=== PATIENT | female | born 1930 | race Caucasian/White ===

== ENCOUNTER 2017-09-06 14:25 | Observation (INO) ==
--- NOTE | 2017-09-06 15:13 | Emergency Department Note ---
Disposition Clinical Impression: Pneumonia Qualifiers: Pneumonia type: due to unspecified organism Laterality: left Lung location: lower lobe of lung Qualified Code(s): J18.1 - Lobar pneumonia, unspecified organism Conjunctivitis, left eye Qualifiers: Conjunctivitis type: acute Acute conjunctivitis type: unspecified Qualified Code(s): H10.32 - Unspecified acute conjunctivitis, left eye Dyspnea Qualifiers: Dyspnea type: unspecified Qualified Code(s): R06.00 - Dyspnea, unspecified Disposition: Admitted As Inpatient Condition: Good Referrals: Isai Soliz DO [Primary Care Provider] - Forms: ED Satisfaction Letter Time of Disposition: 17:34 SOB HPI - General Chief Complaint: ED Shortness of Breath/Dyspnea Stated Complaint: [facility], from [facility] Time Seen by Provider: 09/06/17 14:52 Source: patient Mode of arrival: ambulatory Limitations: no limitations Nursing Notes Reviewed: Yes Vital Signs Reviewed: Yes - History of Present Illness Patient is a 86 F with past medical history breast cancer, recent mastectomy by Dr. Geller in July, taking oral chemotherapy pill currently; HTN; GERD. She presents today due to dyspnea that has been present for the past three days. She has been having shortness of breath, dry cough, increased difficulty with breathing both at rest and with exertion, worsened shortness of breath when lying flat. Patient has been unable to lie flat at night for the past three nights due to increased dyspnea. Denies any hx of COPD, CHF. She admits to a "discomfort" that radiates from substernal region to upper chest - denies it feeling like burning/reflux/GERD. Denies any other nausea, vomiting, diarrhea , abdominal pain, hx of PE or blood clots, any leg swelling erythema or pain. - Related Data Home Medications Medication Instructions Recorded Confirmed Cyclobenzaprine [Flexeril] 5 mg PO HS PRN 06/17/16 07/19/17 Multivitamin [Multi-Day Vitamins] 1 each PO DAILY 06/17/16 07/19/17 Omeprazole [PriLOSEC] 20 mg PO DAILY 06/17/16 07/19/17 Levothyroxine [Synthroid] 100 mcg PO 0630 07/19/17 07/19/17 Anastrozole [Arimidex] 1 mg PO DAILY 09/06/17 09/06/17 Previous Rx's Medication Instructions Recorded Acetaminophen [Tylenol] 650 mg PO Q6HR PRN tablet 07/20/17 Ciprofloxacin OPTH Soln [Ciloxan 1 - 2 drop LEFT EYE Q2-4H #1 bottle 09/06/17 OPTH Soln] Allergies Allergy/AdvReac Type Severity Reaction Status Date / Time Sulfa (Sulfonamide Allergy See Verified 09/06/17 17:30 Antibiotics) Comments morphine AdvReac Nausea Verified 09/06/17 17:30 All systems ED: reviewed and negative except as stated. Constitutional: Denies: fever Cardiovascular: Denies: chest pain, palpitations Respiratory: Reports: cough, dyspnea. Denies: wheezes, hemoptysis, stridor, sputum production Gastrointestinal: Denies: abdominal pain, nausea, vomiting, diarrhea, constipation, hematemesis, melena, hematochezia Genitourinary: Denies: urgency, dysuria, frequency, hematuria Neurological: Denies: weakness, numbness, paresthesias Past Medical History - Past Medical History Attestation: Yes The following information was validated with the patient. Source: patient Medical history: Reports: cancer, diabetes, hypertension Surgical history: Reports: cholecystectomy Psychiatric history: Reports: no psych history - Social History Smoking Status: Never smoker Smokeless Tobacco Status: No Alcohol use: Reports: none Drug use: Reports: none Physical Exam - General Limitations: no limitations General appearance: alert, in no apparent distress, other (midly short of breath , no accessory muscle use) - Head Head exam: atraumatic, normocephalic, normal inspection - Eye Eye exam: Present: PERRL, EOMI, other (left eye conjunctivitis and yellow exudate) - ENT ENT exam: normal exam, normal oropharynx, mucous membranes moist - Neck Neck exam: Present: normal inspection, full ROM, trachea midline - Chest Chest inspection: Present: normal inspection, symmetric chest wall rise - Respiratory Respiratory exam: Present: other (Mild decrease in LUIS EDUARDO and LLL, otherwise clear throughout; mild increase in work of breathing). Absent: wheezes, stridor - Cardiovascular Cardiovascular exam: Present: regular rate, normal rhythm, normal heart sounds - Abdominal Exam Abdominal exam: Present: soft, Non-Tender. Absent: tenderness, distention, guarding, rebound, rigidity - Extremities Exam Extremities exam: Present: normal inspection, full ROM. Absent: tenderness, pedal edema - Neurological Exam Neurological exam: Present: alert, oriented X3 - Psychiatric Psychiatric exam: Present: normal affect, normal mood - Skin Skin exam: Present: warm, dry, intact, normal color Course Course Narrative: Mildly hypertensive, otherwise the rest of the vitals are WNL on room air. Physical exam shows left sided conjunctivitis with yellow exudate otherwise the rest fo the HEENT is WNL, heart RRR, lung exam: Mild decrease in LUIS EDUARDO and LLL, otherwise clear throughout; mild increase in work of breathing. ABdomen soft and nontender. Right mastectomy, well healing. Due to cancer hx, recent mastectomy surgery in July, there is concern for PE. Will obtain CTA of the chest; will also obtain EKG, trop, basic bloodwork. 17:29 CBC shows WBC of 7.5, HGb shows chronic anemia, BMP shows mild hyponatremia. Trop 0.00. UA negative. CTA chest: No PE. Consolidation nearly completely opacifying the left lower lobe, with an associated left pleural effusion. Findings are concerning for pneumonia. Patient will be started on vanc and zosyn for pneumonia, ciprofloxacin drops for left conjunctivitis. Chest CTA 09/06/17 15:17 IMPRESSION: 1. No evidence of a pulmonary embolism. 2. Consolidation nearly completely opacifying the left lower lobe, with an associated left pleural effusion. Findings are concerning for pneumonia. 3. Hiatal hernia. 4. Probable benign cyst noted in the left lobe of the liver. 5. 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 6. Colonic diverticulosis. 7. Right mastectomy. D/ / 09/06/2017 17:07:14 Madan Wilkerson MD / karli Interpreting Provider: Madan Wilkerson MD Vital Signs Temperature 98.1 F 09/06/17 14:30 Pulse Rate 89 09/06/17 14:30 Respiratory Rate 18 09/06/17 14:30 Blood Pressure 148/70 09/06/17 14:30 O2 Sat by Pulse Oximetry 97 09/06/17 14:30 Temperature 98.1 F 09/06/17 14:30 Pulse Rate 89 09/06/17 14:30 Respiratory Rate 18 09/06/17 14:30 Blood Pressure 148/70 09/06/17 14:30 O2 Sat by Pulse Oximetry 95 09/06/17 15:24 Oxygen Delivery Oxygen Delivery Room Air Shortness of Breath/Dyspnea - Medical Records Medical records reviewed: Yes I reviewed the patient's medical records. - Lab Data Lab results reviewed: Yes I reviewed the patient's lab results. Result diagrams: 09/06/17 15:26 09/06/17 15:26 Lab Results 09/06/17 09/06/17 09/06/17 Range/Units 15:26 15:26 15:26 WBC 7.5 (4.3-11.1) K/mcL RBC 3.40 L (3.82-4.97) M/mcL Hgb 10.8 L (11.5-15.4) g/dL Hct 32.1 L (35.3-44.9) % MCV 94.4 (83.0-100.0) fL MCH 31.8 (28.0-33.3) pg MCHC 33.6 (31.6-35.5) g/dL RDW 12.3 (11.5-14.5) % Plt Count 293 (140-400) K/mcL MPV 8.2 L (9.4-12.4) fL Immature Gran % 2.3 (0-4) % Seg Neutrophils % 73.3 % Lymphocytes % 15.6 % Monocytes % 6.6 % Eosinophils % 1.7 % Basophils % 0.5 % Neutrophils # 5.5 (1.6-8.9) K/mcL Lymphocytes # 1.2 (0.6-4.6) K/mcL Monocytes # 0.5 (0.0-1.3) K/mcL Eosinophils # 0.1 (0.0-0.6) K/mcL Basophils # 0.0 (0.0-0.2) K/mcL Sodium 127 L (136-145) mEq/L Potassium 3.7 (3.5-4.5) mEq/L Chloride 92 L (98-109) mEq/L Carbon Dioxide 27 (19-29) mEq/L BUN 7 (7-20) mg/dL Creatinine 0.71 (0.57-1.11) mg/dL Est GFR ( Amer) > 60 (> 60) Est GFR (Non-Af Amer) > 60 (> 60) BUN/Creatinine Ratio 10 (6-26) Glucose 179 H (70-99) mg/dL Calculated Osmolality 266 L (280-300) Calcium 9.4 (8.6-10.8) mg/dL Troponin I 0.00 (0-0.03) ng/mL B-Natriuretic Peptide (0-100) pg/mL Urine Color (Yellow) Urine Clarity (Clear) Urine pH (5.0-8.0) pH Units Ur Specific Wheatcroft (1.010-1.025) Urine Protein (Neg-Trace) mg/dL Urine Glucose (UA) (Normal) mg/dL Urine Ketones (Negative) mg/dL Urine Blood (Negative) Urine Nitrite (Negative) Urine Bilirubin (Negative) Urine Urobilinogen (Normal) mg/dL Ur Leukocyte Esterase (Negative) 09/06/17 09/06/17 Range/Units 15:26 17:01 WBC (4.3-11.1) K/mcL RBC (3.82-4.97) M/mcL Hgb (11.5-15.4) g/dL Hct (35.3-44.9) % MCV (83.0-100.0) fL MCH (28.0-33.3) pg MCHC (31.6-35.5) g/dL RDW (11.5-14.5) % Plt Count (140-400) K/mcL MPV (9.4-12.4) fL Immature Gran % (0-4) % Seg Neutrophils % % Lymphocytes % % Monocytes % % Eosinophils % % Basophils % % Neutrophils # (1.6-8.9) K/mcL Lymphocytes # (0.6-4.6) K/mcL Monocytes # (0.0-1.3) K/mcL Eosinophils # (0.0-0.6) K/mcL Basophils # (0.0-0.2) K/mcL Sodium (136-145) mEq/L Potassium (3.5-4.5) mEq/L Chloride (98-109) mEq/L Carbon Dioxide (19-29) mEq/L BUN (7-20) mg/dL Creatinine (0.57-1.11) mg/dL Est GFR ( Amer) (> 60) Est GFR (Non-Af Amer) (> 60) BUN/Creatinine Ratio (6-26) Glucose (70-99) mg/dL Calculated Osmolality (280-300) Calcium (8.6-10.8) mg/dL Troponin I (0-0.03) ng/mL B-Natriuretic Peptide 201 H (0-100) pg/mL Urine Color Yellow (Yellow) Urine Clarity Clear (Clear) Urine pH 7.0 (5.0-8.0) pH Units Ur Specific [place] 1.012 (1.010-1.025) Urine Protein Negative (Neg-Trace) mg/dL Urine Glucose (UA) Normal (Normal) mg/dL Urine Ketones Negative (Negative) mg/dL Urine Blood Small H (Negative) Urine Nitrite Negative (Negative) Urine Bilirubin Negative (Negative) Urine Urobilinogen Normal (Normal) mg/dL Ur Leukocyte Esterase Small H (Negative) - Radiology Data Radiology results reviewed: Yes I reviewed the patient's radiology results. Chest CTA 09/06/17 15:17 IMPRESSION: 1. No evidence of a pulmonary embolism. 2. Consolidation nearly completely opacifying the left lower lobe, with an associated left pleural effusion. Findings are concerning for pneumonia. 3. Hiatal hernia. 4. Probable benign cyst noted in the left lobe of the liver. 5. 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 6. Colonic diverticulosis. 7. Right mastectomy. D/ / 09/06/2017 17:07:14 Madan Wilkerson MD / karli Interpreting Provider: Madan Wilkerson MD - EKG Data EKG attestation: Yes I reviewed and interpreted this EKG. EKG results narrative: 09/06/2017 at 15:11. Normal sinus rhythm. Rate 84. WV 154. QRS 139. QTc 448. Left axis deviation. Widened QRS that is consistent with previous EKG. No other acute ST elevation or depression compared to EKG on Attestation Statement - Attestation Attestation: I, Atul Kunz DO, examined this patient [id number] and my medical decision-making was reviewed with Dr. Timothy Selby, Resident Physician. I agree with the documented findings, disposition and treatment plan as described except to the extent set forth below. Please see my progress notes for details. 86-year-old female presents to emergency room with several days worth of generalized malaise, intermittent fevers and chills, exertional dyspnea and shortness of breath. She has no specific history of cardiac disease or congestive heart failure according to her. Her vital signs on presentation otherwise unremarkable and stable. Patient does have a history of breast cancer that required mastectomy less than 1 month ago. She was in chemotherapy treatment by oral chemotherapy medications. Patient denies any other symptoms including trauma or injury. Patient presentation here is resting comfortably in the bed in no specific distress. Vital signs reviewed and are stable. Head is atraumatic pupils record and reactive to light. Lungs are clear heart is regular abdomen is soft nontender nondistended. Left septal lung field is diminished on evaluation. But does still aerate very. Right-sided anterior chest wall has appropriately healing surgical site over the right mastectomy. There is no visible signs of discharge drainage or swelling. Patient moves all 4 extremities without any difficulty pulses are intact. She does have pitting edema to the mid knee. Patient is concerning for new onset congestive heart failure, pneumonia, pulmonary emboli secondary to the recent surgical intervention and evaluation. Patient otherwise has no acute symptoms or issues noted at this time. Patient will be observed in emergency room until disposition is determined. See detailed documentation the physical exam, medical intervention, medical decision-making and disposition and the resident physician's note [id number] Patient brought a significant left lower lobe pneumonia. She has been in on the hospital as well as immunosuppression so she will be started on vancomycin and Zosyn. No clinical signs of sepsis at this point. No aggressive fluid resuscitation on the computer this time. Patient will be admitted for definitive management
[2017-09-06 15:39] LABS: Basophils % 0.5 %; Eosinophils # 0.1 K/mcL (0.0-0.6); Eosinophils % 1.7 %; Hematocrit 32.1 % (35.3-44.9); Hemoglobin 10.8 g/dL (11.5-15.4); Immature Granulocytes % 2.3 % (0-4); Lymphocytes # 1.2 K/mcL (0.6-4.6); Lymphocytes % 15.6 %; Mean Corpuscular HGB Conc 33.6 g/dL (31.6-35.5); Mean Corpuscular Hemoglobin 31.8 pg (28.0-33.3); Mean Corpuscular Volume 94.4 fL (83.0-100.0); Mean Platelet Volume 8.2 fL (9.4-12.4); Monocytes # 0.5 K/mcL (0.0-1.3); Monocytes % 6.6 %; Neutrophils # 5.5 K/mcL (1.6-8.9); Platelet Count 293 K/mcL (140-400); Red Cell Distribution Width 12.3 % (11.5-14.5); Segmented Neutrophils % 73.3 %
[2017-09-06 15:52] LABS: BUN/Creatinine Ratio 10 (6-26); Blood Urea Nitrogen 7 mg/dL (7-20); Calcium 9.4 mg/dL (8.6-10.8); Carbon Dioxide 27 mEq/L (19-29); Chloride 92 mEq/L (98-109); Glucose 179 mg/dL (70-99); Osmolality,Calculated 266 (280-300); Potassium 3.7 mEq/L (3.5-4.5); Sodium 127 mEq/L (136-145); eGFR For African Americans > 60 (> 60); eGFR For Non-African Americans > 60 (> 60)
[2017-09-06 17:11] LABS: Bilirubin,Urine Negative (Negative); Blood,Urine Small (Negative); Clarity,Urine Clear (Clear); Color,Urine Yellow (Yellow); Glucose,Urine (UA) Normal (Normal); Ketones,Urine Negative (Negative); Leukocyte Esterase,Urine Small (Negative); Nitrite,Urine Negative (Negative); Protein,Urine Negative (Neg-Trace); Specific Gravity,Urine 1.012 (1.010-1.025); Urobilinogen,Urine Normal (Normal)
[2017-09-06 17:28] LABS: RBC,Urine 0-3 per hpf (0-3); Renal Epithelial Cells,Urine Few per hpf (None-Few); Squamous Epithelial Cell,Urine Few per lpf (None-Few)
[2017-09-06 17:29] LABS: Bacteria,Urine Few per hpf (None-Few); Hyaline Casts,Urine None Seen per lpf (None-Few)
[2017-09-06] MEDS ORDERED: Vancomycin 1,000 MG in D5% in Water 250 ML IVPB SCH (18:00)
[2017-09-06] MEDS ORDERED: Levofloxacin 500 MG/100 ML 500 MG/100 ML BAG IVPB ONE (19:56)
--- NOTE | 2017-09-06 20:29 | Internal Med History&Physical ---
Date of Encounter: 09/07/17 Time of Encounter: 20:27 Assessment and Plan (1) HCAP (healthcare-associated pneumonia) Current visit: Yes Status: Acute CTA showed no evidence of PE but found consolidation in left lower lobe with associated pleural effusion WBC normal Vitals signs stable, does not meet sepsis criteria In the setting of immunosuppression with Anastrozole and her recent mastectomy involving an overnight stay back in July here at [facility], we will treat her as a healthcare-associated pneumonia Kidney function normal. Cr 0.71 IV ABx - Levaquin, Zosyn, Vancomycin Mucinex Sputum culture Supportive care (2) Pleural effusion Current visit: Yes Status: Acute See above for possible HCAP management though patient has minimal nonproductive cough, no WBC or fever With the history of metastatic invasive lobular carcinoma of breast, we are concerned about possible mets to the lung resulting in pleural effusion Consult placed to oncology for further investigation and possible PET scan (3) Dyspnea Current visit: Yes Status: Acute see above Qualifiers: Dyspnea type: unspecified Qualified Code(s): R06.00 - Dyspnea, unspecified (4) UTI (urinary tract infection) Current visit: Yes Status: Acute UA shows small blood, small leuk esterase + and 5-15 WBCs. Covered for now with HCAP regimen Pending culture Qualifiers: Urinary tract infection type: site unspecified Hematuria presence: with hematuria Qualified Code(s): N39.0 - Urinary tract infection, site not specified; R31.9 - Hematuria, unspecified; R31.9 - Hematuria, unspecified (5) Anxiety Current visit: Yes Status: Acute Worse in the evening with increased cough and anxiety about not sleeping. Will start slow with melatonin and adjust accordingly. (6) Breast cancer Current visit: Yes Status: Chronic S/p right masectomy in July Taking Anastrozole once per day starting on Aug 09 for five year Will follow as outpatient with the cancer center here in [place] Continue therapy while she is here Qualifiers: Breast location: unspecified site of breast Estrogen receptor status: positive Patient sex: female Laterality: right Qualified Code(s): C50.911 - Malignant neoplasm of unspecified site of right female breast; Z17.0 - Estrogen receptor positive status [ER+]; Z17.0 - Estrogen receptor positive status [ER+] (7) Hyponatremia Current visit: No Status: Acute Na 127, Serum Osmolality 266 Euvolemic on exam Ordered TSH, Free T4, Urine Na and Urine Osmolality to investigate causes of her hyponatremia Will continue to follow (8) Hypothyroidism Current visit: Yes Status: Chronic Restarting synthroid in the am. Rechecking TSH and Free T4 and will adjust accordingly. Qualifiers: Hypothyroidism type: unspecified Qualified Code(s): E03.9 - Hypothyroidism , unspecified (9) GERD (gastroesophageal reflux disease) Current visit: Yes Status: Chronic Continue home Prilosec Qualifiers: Esophagitis presence: esophagitis presence not specified Qualified Code(s) : K21.9 - Gastro-esophageal reflux disease without esophagitis (10) Conjunctivitis, left eye Current visit: Yes Status: Acute Continued Cipro drops to left eye Qualifiers: Conjunctivitis type: acute Acute conjunctivitis type: unspecified Qualified Code(s): H10.32 - Unspecified acute conjunctivitis, left eye (11) Muscle spasm Current visit: No Status: Chronic 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 Reports more recent spasm with coughing and takes flexiril PRN. Will continue during her stay. Internal Medicine - H&P: HPI Chief complaint: shortness of breath Admitted From: Home Plans for Post Hospital Care: Home History of present illness: Ms. Dallas is a very pleasant 86 year old female with a past medical history hypothyroidism, lumbago (sciatia on left), GERD and breast cancer who presents to the [facility] Emergency Department with a chief complaint of shortness of breath. She reports the dyspnea started Monday afternoon into the evening which worsens while laying flat. There is associated productive cough and fatigue. She did not take any medications at home for this complaint and has no history of this previously. The dyspnea again worsened while lying down Monday night to the point she was believing "this is it" and I'm going to . Denies any hempotysis, chest pain, palpitations, recent travel, sick contacts, REAGAN, LE edema or weight loss. Patient was seen at the [facility] urgent care today and was found to have conjunctivitis of the left eye and significant difficult breathing requiring her to come the ED. On arrival, EKG shows old LBBB that is in sinus rhythm. No new changes noted when compared to previous. Initial workup shws WBC 7.5, vital signs stable, Na 127, kidney function normal and BNP elevated at 201. UA shows small blood, small leuk esterase + and 5-15 WBCs. Culture sent. CTA was done and showed no evidence of PE but found consolidation in left lower lobe with associated pleural effusion. She was started on vancomycin, zosyn and levaquin. On evaluation, she states that she underwent a left masectomy roughly 5 weeks ago here at [facility] and started taking once per day anastrozole for chemotherapy on August 09 for five years. She is to follow up with cancer patient as an outpatient for continued management. She denies any tobacco or EtOH abuse. Patient lives at home with her . We will admit patient to for further workup and management. Past Med Surg Social Fam HX - Past Medical History Medical history: cancer, diabetes, hypertension Psychiatric history: no psych history - Past Surgical History Surgical History: cholecystectomy - Social History Smoking Status: Never smoker Smokeless Tobacco Status: No Alcohol use: none Drug use: none - Family History Mother Living Status: Hx Family Endocrine Disorder: Yes (Thyroid) Internal Medicine - H&P: Meds Cyclobenzaprine [Flexeril] 5 mg PO HS PRN 06/17/16 [History] Multivitamin [Multi-Day Vitamins] 1 each PO DAILY 06/17/16 [History] Omeprazole [PriLOSEC] 20 mg PO DAILY 06/17/16 [History] Levothyroxine [Synthroid] 100 mcg PO 0630 07/19/17 [History] Acetaminophen [Tylenol] 650 mg PO Q6HR PRN tablet 07/20/17 [Rx] Anastrozole [Arimidex] 1 mg PO DAILY 09/06/17 [History] Ciprofloxacin OPTH Soln [Ciloxan OPTH Soln] 1 - 2 drop LEFT EYE Q2-4H #1 bottle 09/06/17 [Rx] 3 Allergy/AdvReac Type Severity Reaction Status Date / Time Sulfa (Sulfonamide Allergy See Verified 09/06/17 17:30 Antibiotics) Comments morphine AdvReac Nausea Verified 09/06/17 17:30 All Systems PM: A 10-system review of systems was performed and is negative for pertinent findings except as documented above in the HPI. - Constitutional Constitutional: fatigue, weakness - EENT Eyes: discharge, itchy eyes - Breasts Breasts: as per HPI - Cardiovascular Cardiovascular ROS IM: dyspnea, dyspnea on exertion, no chest pain, no diaphoresis, no palpitations - Respiratory Respiratory: cough, dyspnea, pain with cough, no hemoptysis - Gastrointestinal Gastrointestinal: no abdominal pain, no constipation, no diarrhea - Genitourinary Genitourinary: dysuria - Musculoskeletal Musculoskeletal ROS IM: back pain - Integumentary Integumentary IM: no rash - Neurological Neurological ROS: weakness, no headache(s) - Psychiatric Psychiatric: anxiety - Constitutional Vitals: Temp Pulse Resp BP Pulse Ox 98.1 F 82 18 149/80 97 09/06/17 14:30 09/06/17 18:26 09/06/17 18:26 09/06/17 18:26 09/06/17 18:26 General appearance: Present: cooperative, A&O X 3, no acute distress (Sitting at bedside, ambulating to bathroom) - Head Head exam: Present: atraumatic, normocephalic - Eye Eye exam: Present: conjunctival injection (left eye) - Expanded Eye Exam sclera: left: exudate - Neck Neck exam general surgery: Present: normal inspection, supple, trachea midline - Respiratory Respiratory exam: Present: decreased breath sounds (left lower), rhonchi (left) . Absent: accessory muscle use, chest wall tenderness, respiratory distress - Cardiovascular Cardiovascular exam: Present: RRR, +S1, +S2 - GI/Abdominal GI/Abdominal exam: Present: normal bowel sounds, soft. Absent: tenderness - Rectal Rectal exam: Present: deferred - Extremities Exam Extremities exam: Present: warm. Absent: calf tenderness, pedal edema, tenderness - Neurological Exam Neurological exam: Present: alert, oriented X3, no focal deficits. Absent: speech deficit - Psychiatric Psychiatric exam: Present: anxious - Skin Skin exam: Present: dry, warm. Absent: cyanosis Internal Med - H&P Results - Labs CBC & Chem 7: 09/06/17 15:26 09/06/17 15:26
[2017-09-06] MEDS: Ciprofloxacin OPTH Soln 2.5 ML BOTTLE LEFT EYE SCH ×2 (21:16→23:47)
[2017-09-06] MEDS ORDERED: Naloxone 0.4 MG/ML INJ IVP PRN (21:18)
[2017-09-06] MEDS ORDERED: Acetaminophen 325 MG TABLET PO PRN (21:18)
[2017-09-06] MEDS: Vancomycin 1,000 MG in D5% in Water 250 ML IVPB SCH (22:03)
[2017-09-06] MEDS: Levofloxacin 750 MG/150 ML 750 MG/150 ML BAG IVPB SCH (23:09)
--- NOTE | 2017-09-06 23:20 | Event Note ---
Date of Encounter: 09/06/17 Time of Encounter: 23:19 Patient seen and examined with medical aides teacher. Agree with this assessment and plan.
[2017-09-06] MEDS: Piperacillin/Tazobactam 3.375 GM/200 ML BAG IVPB SCH (23:51)
[2017-09-07 04:51] LABS: Basophils # 0.1 K/mcL (0.0-0.2); Basophils % 0.5 %; Eosinophils # 0.1 K/mcL (0.0-0.6); Eosinophils % 1.3 %; Hematocrit 30.9 % (35.3-44.9); Hemoglobin 10.6 g/dL (11.5-15.4); Immature Granulocytes % 1.8 % (0-4); Lymphocytes # 1.3 K/mcL (0.6-4.6); Lymphocytes % 13.5 %; Mean Corpuscular HGB Conc 34.3 g/dL (31.6-35.5); Mean Corpuscular Hemoglobin 31.9 pg (28.0-33.3); Mean Corpuscular Volume 93.1 fL (83.0-100.0); Mean Platelet Volume 8.3 fL (9.4-12.4); Monocytes # 0.6 K/mcL (0.0-1.3); Monocytes % 6.7 %; Neutrophils # 7.3 K/mcL (1.6-8.9); Platelet Count 283 K/mcL (140-400); Red Blood Count 3.32 M/mcL (3.82-4.97); Red Cell Distribution Width 12.2 % (11.5-14.5); Segmented Neutrophils % 76.2 %
[2017-09-07] MEDS: Ciprofloxacin OPTH Soln 2.5 ML BOTTLE LEFT EYE SCH ×6 (05:01→22:55)
[2017-09-07] MEDS: Vancomycin 1,000 MG in D5% in Water 250 ML IVPB SCH (05:01)
[2017-09-07 05:07] LABS: BUN/Creatinine Ratio 12 (6-26); Blood Urea Nitrogen 8 mg/dL (7-20); Calcium 8.6 mg/dL (8.6-10.8); Carbon Dioxide 23 mEq/L (19-29); Chloride 96 mEq/L (98-109); Glucose 113 mg/dL (70-99); Magnesium 1.7 mg/dL (1.6-2.6); Osmolality,Calculated 267 (280-300); Sodium 129 mEq/L (136-145); eGFR For African Americans > 60 (> 60); eGFR For Non-African Americans > 60 (> 60)
[2017-09-07 05:14] LABS: Potassium 4.5 mEq/L (3.5-4.5)
[2017-09-07] MEDS: Piperacillin/Tazobactam 3.375 GM/200 ML BAG IVPB SCH ×3 (06:45→22:54)
--- NOTE | 2017-09-07 07:21 | Electrocardiograph Report ---
[facility] [employer] Test Date: 2017-09-06 Pat Name: Carolynn Dallas Department: [id number] Room: 2A31 Gender: F [employer]: EKP : 1930 Requested By: Fernando Prather Order Number: [id number] Reading MD: Isai Soliz DO Measurements Intervals [place] Rate: 84 P: 22 VA: 154 QRS: -32 QRSD: 139 T: 113 QT: 406 QTc: 448 Interpretive Statements SINUS RHYTHM MARKED LEFT AXIS DEVIATION LEFT BUNDLE BRANCH BLOCK Electronically Signed On 09-07-2017 7:20:12 EST by Isai Soliz DO
[2017-09-07] MEDS ORDERED: Piperacillin/Tazobactam 4.5 GM in Water for inj. (sterile) 20 ML IVP SCH (09:00)
[2017-09-07] MEDS: Anastrozole 1 MG TABLET PO SCH (09:52)
--- NOTE | 2017-09-07 10:57 | Internal Med Progress Note ---
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 Continue to monitor (3) Conjunctivitis, left eye Current Visit: Yes Status: Acute Assessment and plan: Continue cipro drops She has no red eye Qualifiers: Conjunctivitis type: acute Acute conjunctivitis type: unspecified Qualified Code(s): H10.32 - Unspecified acute conjunctivitis, left eye (4) Anxiety Current Visit: Yes Status: Chronic Assessment and plan: Chronic, stable, continue home meds (5) Breast cancer Current Visit: Yes Status: Chronic Assessment and plan: Chronic, stable, metastatic follow up with oncology out-patient Continue anastrozole Qualifiers: Breast location: unspecified site of breast Estrogen receptor status: positive Patient sex: female Laterality: right Qualified Code(s): C50.911 - Malignant neoplasm of unspecified site of right female breast; Z17.0 - Estrogen receptor positive status [ER+]; Z17.0 - Estrogen receptor positive status [ER+] (6) Hypothyroidism Current Visit: Yes Status: Chronic Assessment and plan: Continue Synthroid Qualifiers: Hypothyroidism type: unspecified Qualified Code(s): E03.9 - Hypothyroidism , unspecified (7) GERD (gastroesophageal reflux disease) Current Visit: Yes Status: Chronic Assessment and plan: Continue home meds Qualifiers: Esophagitis presence: esophagitis presence not specified Qualified Code(s) : K21.9 - Gastro-esophageal reflux disease without esophagitis (8) UTI (urinary tract infection) Current Visit: Yes Status: Acute Assessment and plan: Suspected Continue current antibiotics Qualifiers: Urinary tract infection type: site unspecified Hematuria presence: with hematuria Qualified Code(s): N39.0 - Urinary tract infection, site not specified; R31.9 - Hematuria, unspecified; R31.9 - Hematuria, unspecified (9) Pleural effusion Current Visit: Yes Status: Acute Assessment and plan: Parapneumonic patient is clinically stable No O2 requirements - Subjective Interval history: Seen and evaluated with daughter at bedside No new complains She actually feels she is getting some improvement She is admitted and being managed for L Lung pneumonia and Pleural effusion, suspected UTI - Constitutional Vitals: Temp Pulse Resp BP Pulse Ox 97.5 F L 78 17 138/75 96 09/07/17 10:48 09/07/17 10:48 09/07/17 10:48 09/07/17 10:48 09/07/17 10:48 General appearance: Present: cooperative, A&O X 3, pleasant, no acute distress - Head Head exam: Present: atraumatic, normocephalic - Eye Eye exam: Present: PERRL, conjuntiva pink, sclera anicteric Pupils: Present: PERRL - Neck Neck exam general surgery: Present: supple, trachea midline. Absent: lymphadenopathy - Respiratory Additional comments: Diminished air entry on the LLL zone. No crackles or rhonchi - Cardiovascular Cardiovascular exam: Present: RRR, +S1, +S2. Absent: diastolic murmur, gallop, rubs, systolic murmur - GI/Abdominal GI/Abdominal exam: Present: normal bowel sounds, soft, no peritoneal signs. Absent: distended, tenderness - Extremities Exam Extremities exam: Present: warm, radial pulses palpable and symmetrical. Absent : calf tenderness, cyanotic, pedal edema - Neurological Exam Neurological exam: Present: alert, CN II-XII intact, oriented X3, no focal deficits. Absent: pronater drift, facial droop, speech deficit - Skin Skin exam: Present: dry, intact Internal Medicine: Result - Labs CBC & Chem 7: 09/07/17 04:41 09/07/17 04:41 Labs: Short CBC 09/07/17 Range/Units 04:41 WBC 9.6 (4.3-11.1) K/mcL Hgb 10.6 L (11.5-15.4) g/dL Hct 30.9 L (35.3-44.9) % Plt Count 283 (140-400) K/mcL Neutrophils # 7.3 (1.6-8.9) K/mcL BMP 09/07/17 04:41 Sodium 129 L Potassium 4.5 Chloride 96 L Carbon Dioxide 23 BUN 8 Creatinine 0.65 Glucose 113 H Calcium 8.6 Consult Discharge Plan - Plan Referrals: Isai Soliz DO [Primary Care Provider] - 09/12/17 10:00 am ()
[2017-09-07] MEDS ORDERED: Hydrocortisone Rectal 2.5% CRM 28 GM TUBE RC PRN (11:05)
[2017-09-07] MEDS ORDERED: Aminoglycoside Consult 1 EACH MC ONE (13:49)
[2017-09-07] MEDS ORDERED: Piperacillin/Tazobactam 3.375 GM in Water for inj. (sterile) 20 ML IVP ONE (17:21)
[2017-09-07] MEDS: Levofloxacin 750 MG/150 ML 750 MG/150 ML BAG IVPB SCH (20:47)
[2017-09-08] MEDS: Ciprofloxacin OPTH Soln 2.5 ML BOTTLE LEFT EYE SCH ×5 (04:49→21:24)
[2017-09-08] MEDS: *HR* Enoxaparin 40 MG/0.4 ML SYRINGE SQ SCH (04:50)
[2017-09-08] MEDS: Piperacillin/Tazobactam 3.375 GM/200 ML BAG IVPB SCH ×3 (04:50→23:11)
[2017-09-08] MEDS ORDERED: Vancomycin 1,250 MG in D5% in Water 250 ML IVPB SCH (05:00)
[2017-09-08 08:21] LABS: Basophils % 0.4 %; Eosinophils # 0.1 K/mcL (0.0-0.6); Eosinophils % 1.1 %; Hematocrit 33.2 % (35.3-44.9); Hemoglobin 11.6 g/dL (11.5-15.4); Immature Granulocytes % 2.5 % (0-4); Immature Platelets 0.9 % (1.1-6.1); Lymphocytes # 1.4 K/mcL (0.6-4.6); Lymphocytes % 15.3 %; Mean Corpuscular HGB Conc 34.9 g/dL (31.6-35.5); Mean Corpuscular Volume 91.7 fL (83.0-100.0); Monocytes # 0.6 K/mcL (0.0-1.3); Monocytes % 6.2 %; Neutrophils # 6.8 K/mcL (1.6-8.9); Platelet Count 424 K/mcL (140-400); Red Blood Count 3.62 M/mcL (3.82-4.97); Red Cell Distribution Width 12.1 % (11.5-14.5); Segmented Neutrophils % 74.5 %
[2017-09-08 08:34] LABS: BUN/Creatinine Ratio 12 (6-26); Blood Urea Nitrogen 8 mg/dL (7-20); Calcium 8.7 mg/dL (8.6-10.8); Carbon Dioxide 24 mEq/L (19-29); Chloride 97 mEq/L (98-109); Glucose 107 mg/dL (70-99); Magnesium 1.8 mg/dL (1.6-2.6); Osmolality,Calculated 267 (280-300); Sodium 129 mEq/L (136-145); eGFR For African Americans > 60 (> 60); eGFR For Non-African Americans > 60 (> 60)
[2017-09-08 08:36] LABS: Potassium 5.1 mEq/L (3.5-4.5)
--- NOTE | 2017-09-08 08:41 | Oncology Inp Consult Note ---
Date of Encounter: 09/08/17 Time of Encounter: 17:00 Assessment and Plan (1) Breast cancer Status: Chronic Assessment and plan: Right breast invasive lobular carcinoma, 5 cm tumor,pT2,N1, stage IIB, Er 100%, DE 10%, HER2 neg, grade 2, status post right mastectomy July 2017, surgical wound looks well she currently does not have any problems associated with her breast cancer. She continues to be on anastrozole. She had 2 out of 2 lymph nodes positive with extranodal tumor extension identified. Patient did not want to pursue with oncology (or radiation) and prefers to take antiestrogen with Dr. Geller. She however wanted information for breast cancer support group that is available through [facility], also prescriptions for breast prosthesis/supplies which can be provided to her at a later date. Left lower lobe solid irritation, clinically consistent with pneumonia on broad- spectrum antibiotics clinically feeling improved. Rt paratracheal lymphadenopathy-could be reactive, cystic lesion noted in the liver up to 5 cm in size and thickening left adrenal gland noted. Plan is to continue AI nad follow up with us in clinic after discharge, she will discuss onc follwo up further with her surgeon. Discussed plan of care with patient and daughter bed side. Qualifiers: Breast location: unspecified site of breast Estrogen receptor status: positive Patient sex: female Laterality: right Qualified Code(s): C50.911 - Malignant neoplasm of unspecified site of right female breast; Z17.0 - Estrogen receptor positive status [ER+]; Z17.0 - Estrogen receptor positive status [ER+] - Data of Consult Requesting Physician: Iggy Nunez MD Primary Care Provider: Carissa Ramsey - Consult Narrative Reason for consult: breast cancer, pneumonia History of present illness: Ms. Dallas is a 86 year old female with medical history significant for anxiety, hypothyroidism, gastroesophageal reflux disease, diabetes, hypertension, breast cancer status post right mastectomy on anastrozole, hospitalized due to shortness of breath associated with productive cough for the last few days. Patient reports that she had right mastectomy in July [address] Alberto on follow-up visit, 2 days later she started developing coughing with productive phlegm. She had undergone a CT angiogram for shortness of breath that showed no pulmonary embolism but consolidation and completely opacifying left lower lobe concerning for pneumonia. She started on by broad-spectrum antibiotics Levaquin and Zosyn and vancomycin. Urinalysis showed possible infection, culture report showing Escherichia coli. Oncology consulted due to patient's history of recent diagnosis of breast cancer. She had a diagnostic mammogram in June 2017 that showed in the right breast 0.4 x 0.6 spiculated hypoechoic lesion, patient underwent ultrasound- guided biopsy of this lesion. She also had an additional lesion at the immediate subareolar region of the breast. She underwent July 2017 right mastectomy with sentinel lymph node biopsies, single focus of invasive carcinoma tumor size measuring 5 cm with histologic grade 2 final margin status was negative lymphovascular invasion was identified 2 sentinel lymph nodes were positive, extranodal tumor extension was identified pathologic staging was pT2 [id number], stage IIB estrogen receptor was 100% strongly positive HER-2/chet was negative progesterone was 10% strongly positive. Patient continues to have a cough or shortness of breath is improving. She denies some soreness in the mastectomy site but denies any pain. Past Med Surg Social Fam HX - Past Medical History Medical history: cancer, diabetes, hypertension Psychiatric history: no psych history - Past Surgical History Surgical History: cholecystectomy - Social History Smoking Status: Never smoker Smokeless Tobacco Status: No Alcohol use: none Drug use: none - Family History Mother Living Status: Hx Family Endocrine Disorder: Yes (Thyroid) Medications and Allergies Cyclobenzaprine [Flexeril] 5 mg PO HS PRN 06/17/16 [History] Multivitamin [Multi-Day Vitamins] 1 each PO DAILY 06/17/16 [History] Omeprazole [PriLOSEC] 20 mg PO DAILY 06/17/16 [History] Levothyroxine [Synthroid] 100 mcg PO 0630 07/19/17 [History] Acetaminophen [Tylenol] 650 mg PO Q6HR PRN tablet 07/20/17 [Rx] Anastrozole [Arimidex] 1 mg PO DAILY 09/06/17 [History] Ciprofloxacin OPTH Soln [Ciloxan OPTH Soln] 1 - 2 drop LEFT EYE Q2-4H #1 bottle 09/06/17 [Rx] 3 Allergy/AdvReac Type Severity Reaction Status Date / Time Sulfa (Sulfonamide Allergy See Verified 09/06/17 17:30 Antibiotics) Comments morphine AdvReac Nausea Verified 09/06/17 17:30 Review of systems: as in hpi Oncology - Exam - Constitutional Vitals: Temp Pulse Resp BP Pulse Ox 97.7 F 79 17 146/75 96 09/08/17 04:08 09/08/17 07:03 09/08/17 07:03 09/08/17 07:03 09/08/17 07:03 General appearance: average body habitus - Head Head exam: Present: atraumatic, normal inspection - Eye Eye exam: Present: sclera anicteric - ENT ENT exam: Present: mucous membranes moist - Respiratory Respiratory exam: Present: CTAB, rhonchi - Cardiovascular Cardiovascular exam: Present: +S1, +S2 - GI/Abdominal GI/Abdominal exam: Present: normal bowel sounds, soft - Extremities Exam Extremities exam: Present: normal inspection - Neurological Exam Neurological exam: Present: alert, CN II-XII intact, oriented X3 - Additional findings Additional findings: Breast-rt s/p mastectomy without induration or skin changes Oncology - Results Labs: Short CBC 09/08/17 Range/Units 08:12 WBC 9.1 (4.3-11.1) K/mcL Hgb 11.6 (11.5-15.4) g/dL Hct 33.2 L (35.3-44.9) % Plt Count 424 H (140-400) K/mcL Neutrophils # 6.8 (1.6-8.9) K/mcL Consult Discharge Plan - Plan Referrals: Isai Soliz DO [Primary Care Provider] - 09/12/17 10:00 am ()
[2017-09-08] MEDS: Anastrozole 1 MG TABLET PO SCH (08:45)
[2017-09-08] MEDS ORDERED: Melatonin 3 MG TABLET PO PRN (08:50)
--- NOTE | 2017-09-08 08:54 | Internal Med Progress Note ---
<Luis Limon - Last Filed: 09/08/17 08:52> Date of Encounter: 09/08/17 Time of Encounter: 08:52 - Assessment and plan (1) HCAP (healthcare-associated pneumonia) Current Visit: Yes Status: Acute Assessment and plan: Patient has evidence of a left lower lobe pneumonia on CT. Given the patient's recent surgery and stated study care facility for treatment for healthcare associated pneumonia with vancomycin, Zosyn, Levaquin. Patient seems to be improving clinically. We will de-escalate once negative blood cultures have been returned. Today is day 3 of antibiotic therapy. (2) Pleural effusion Current Visit: Yes Status: Acute Assessment and plan: Likely parapneumonic given the patient's pneumonia as discussed above. Currently stable not requiring oxygen. No indication for thoracentesis. Continue to treat pneumonia with antibiotics as discussed above. (3) UTI (urinary tract infection) Current Visit: Yes Status: Acute Assessment and plan: Secondary to Escherichia coli. Which is sensitive to all listed antibiotics other than ampicillin. Patient is currently being covered with broad-spectrum antibiotics for her pneumonia as discussed above. Today is day 3 of treatment. Qualifiers: Urinary tract infection type: acute cystitis Hematuria presence: with hematuria Qualified Code(s): N30.01 - Acute cystitis with hematuria (4) Hyponatremia Current Visit: Yes Status: Acute Assessment and plan: Acute on chronic. Stable. Asymptomatic. 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 Continue to encourage good by mouth intake and monitor patient's sodium. (5) Conjunctivitis, left eye Current Visit: Yes Status: Acute Assessment and plan: Present on arrival. Improving. Continue Cipro eyedrops. Qualifiers: Conjunctivitis type: acute Acute conjunctivitis type: unspecified Qualified Code(s): H10.32 - Unspecified acute conjunctivitis, left eye (6) Breast cancer Current Visit: Yes Status: Chronic Assessment and plan: Status post mastectomy approximately 6 weeks ago with positive lymph node biopsy. Patient is currently on Arimidex, will continue. Patient was seen by oncology, patient wishes to discuss with her surgeon before pursuing any further treatment options. Qualifiers: Breast location: unspecified site of breast Estrogen receptor status: positive Patient sex: female Laterality: right Qualified Code(s): C50.911 - Malignant neoplasm of unspecified site of right female breast; Z17.0 - Estrogen receptor positive status [ER+]; Z17.0 - Estrogen receptor positive status [ER+] (7) Hypothyroidism Current Visit: Yes Status: Chronic Assessment and plan: TSH was slightly elevated however free T4 is in within normal limits. We will continue home Synthroid dose and encourage patient to follow-up with her PCP as an outpatient for recheck TSH. Qualifiers: Hypothyroidism type: unspecified Qualified Code(s): E03.9 - Hypothyroidism , unspecified (8) GERD (gastroesophageal reflux disease) Current Visit: Yes Status: Chronic Assessment and plan: Stable. Continue omeprazole 20 mg daily. Qualifiers: Esophagitis presence: esophagitis presence not specified Qualified Code(s) : K21.9 - Gastro-esophageal reflux disease without esophagitis (9) Anxiety Current Visit: Yes Status: Chronic Assessment and plan: Chronic, stable, continue home meds. Patient states that she takes melatonin to help her sleep, we will make melatonin available as needed here in the hospital. - Subjective Interval history: Patient seen and examined at bedside. Patient states that she feels pretty good today. She feels like her breathing is improved. She denies cough. She does report some insomnia. She denies any headaches, falls, chest pain, shortness of breath, fever, chills. - Constitutional Vitals: Temp Pulse Resp BP Pulse Ox 97.7 F 79 17 146/75 96 09/08/17 04:08 09/08/17 07:03 09/08/17 07:03 09/08/17 07:03 09/08/17 07:03 General appearance: Present: cooperative, A&O X 3, pleasant, no acute distress - Respiratory Respiratory exam: Present: rhonchi (Mild, right lower lobe posteriorly). Absent : rales, respiratory distress, wheezes, tachypnea - Cardiovascular Cardiovascular exam: Present: RRR. Absent: gallop, rubs, systolic murmur - GI/Abdominal GI/Abdominal exam: Present: normal bowel sounds, soft. Absent: distended, tenderness - Extremities Exam Extremities exam: Present: warm. Absent: pedal edema, tenderness - Neurological Exam Neurological exam: Present: alert, CN II-XII intact, oriented X3, no focal deficits Internal Medicine: Result - Labs CBC & Chem 7: 09/08/17 08:12 09/08/17 08:12 Labs: Short CBC 12/01/17 Range/Units 08:12 WBC 9.1 (4.3-11.1) K/mcL Hgb 11.6 (11.5-15.4) g/dL Hct 33.2 L (35.3-44.9) % Plt Count 424 H (140-400) K/mcL Neutrophils # 6.8 (1.6-8.9) K/mcL BMP 09/08/17 08:12 Sodium 129 L Potassium 5.1 H Chloride 97 L Carbon Dioxide 24 BUN 8 Creatinine 0.68 Glucose 107 H Calcium 8.7 - Impressions Impressions Head CT 09/07/17 13:21 IMPRESSION: No acute intracranial abnormality. D/ / Alverto Stokes MD / Alverto Stokes MD Interpreting Provider: Alverto Stokes MD Consult Discharge Plan - Plan Referrals: Isai Soliz DO [Primary Care Provider] - 09/12/17 10:00 am () <Iggy Nunez T - Last Filed: 09/08/17 12:34> Date of Encounter: 09/08/17 - Assessment and plan (1) HCAP (healthcare-associated pneumonia) Current Visit: Yes Status: Acute (2) Hyponatremia Current Visit: Yes Status: Acute (3) Conjunctivitis, left eye Current Visit: Yes Status: Acute Qualifiers: Conjunctivitis type: acute Acute conjunctivitis type: unspecified Qualified Code(s): H10.32 - Unspecified acute conjunctivitis, left eye (4) Anxiety Current Visit: Yes Status: Chronic (5) Breast cancer Current Visit: Yes Status: Chronic Qualifiers: Breast location: unspecified site of breast Estrogen receptor status: positive Patient sex: female Laterality: right Qualified Code(s): C50.911 - Malignant neoplasm of unspecified site of right female breast; Z17.0 - Estrogen receptor positive status [ER+]; Z17.0 - Estrogen receptor positive status [ER+] (6) Hypothyroidism Current Visit: Yes Status: Chronic Qualifiers: Hypothyroidism type: unspecified Qualified Code(s): E03.9 - Hypothyroidism , unspecified (7) GERD (gastroesophageal reflux disease) Current Visit: Yes Status: Chronic Qualifiers: Esophagitis presence: esophagitis presence not specified Qualified Code(s) : K21.9 - Gastro-esophageal reflux disease without esophagitis (8) UTI (urinary tract infection) Current Visit: Yes Status: Acute Qualifiers: Urinary tract infection type: acute cystitis Hematuria presence: with hematuria Qualified Code(s): N30.01 - Acute cystitis with hematuria (9) Pleural effusion Current Visit: Yes Status: Acute - Constitutional Vitals: Temp Pulse Resp BP Pulse Ox 98.3 F 78 17 153/89 97 09/08/17 11:05 09/08/17 11:05 09/08/17 11:05 09/08/17 11:05 09/08/17 11:05 Internal Medicine: Result - Labs CBC & Chem 7: 09/08/17 08:12 09/08/17 08:12 Labs: Short CBC 09/08/17 Range/Units 08:12 WBC 9.1 (4.3-11.1) K/mcL Hgb 11.6 (11.5-15.4) g/dL Hct 33.2 L (35.3-44.9) % Plt Count 424 H (140-400) K/mcL Neutrophils # 6.8 (1.6-8.9) K/mcL BMP 09/08/17 08:12 Sodium 129 L Potassium 5.1 H Chloride 97 L Carbon Dioxide 24 BUN 8 Creatinine 0.68 Glucose 107 H Calcium 8.7 - Impressions Impressions Head CT 09/07/17 13:21 IMPRESSION: No acute intracranial abnormality. D/ / Alverto Stokes MD / Alverto Stokes MD Interpreting Provider: Alverto Stokes MD - Attending Attestation I have independently seen and examined this patient on 09/08/17 and discussed plan of care with the resident physician She has no new complains She is admitted and being managed for E.Coli UTI and HCAP, as well as mild Pleural effusion Pnuemonia is possibly streptococcal, no cultures done or positive. Patient has no sputum culture done She is looking improved and does not have O2 requirement. Hospital stay complicated by a mechanical fall, no neurlogic sequelae She is ambulatory and clinically improving Physical exam: VSS. Decreased RLL air entry, otherwise stable Labs and Imaging reviewed-Pansensitive E.coli in the urine A/P HCAP-Unknown organism, assume strep, parapneumoic effusion, mild, continue Levaquin. D/C Vanco and Zosyn, no risk for aspiration or MRSA E. Coli UTI-Sensitive to Levaquin, continue same Continue other management PTOT eval today Rest as in resident physician's documentation
[2017-09-08] MEDS: Sennosides/Docusate Sodium TABLET PO SCH ×2 (10:07→21:22)
--- NOTE | 2017-09-08 16:33 | Electrocardiograph Report ---
[place] [id number] Test Date: 2017-09-06 Pat Name: Carolynn Dallas Department: 112 Room: 2A Gender: F Boat Officer: ROXI : 1930 Requested By: Iggy Nunez Order Number: [id number] Reading MD: Fernando Whitley Measurements Intervals [place] Rate: 80 P: 26 UT: 149 QRS: -31 QRSD: 135 T: 88 QT: 414 QTc: 450 Interpretive Statements SINUS RHYTHM MARKED LEFT AXIS DEVIATION LEFT BUNDLE BRANCH BLOCK Electronically Signed On 09-08-2017 16:32:10 EST by Fernando Whitley
[2017-09-08] MEDS: Levofloxacin 750 MG/150 ML 750 MG/150 ML BAG IVPB SCH (21:22)
[2017-09-09 05:55] LABS: Basophils % 0.5 %; Eosinophils # 0.1 K/mcL (0.0-0.6); Eosinophils % 1.6 %; Hematocrit 31.9 % (35.3-44.9); Hemoglobin 10.7 g/dL (11.5-15.4); Immature Granulocytes % 2.7 % (0-4); Lymphocytes # 1.1 K/mcL (0.6-4.6); Lymphocytes % 14.3 %; Mean Corpuscular HGB Conc 33.5 g/dL (31.6-35.5); Mean Corpuscular Hemoglobin 31.3 pg (28.0-33.3); Mean Corpuscular Volume 93.3 fL (83.0-100.0); Mean Platelet Volume 7.7 fL (9.4-12.4); Monocytes # 0.6 K/mcL (0.0-1.3); Monocytes % 7.7 %; Neutrophils # 5.6 K/mcL (1.6-8.9); Platelet Count 324 K/mcL (140-400); Red Blood Count 3.42 M/mcL (3.82-4.97); Red Cell Distribution Width 12.3 % (11.5-14.5); Segmented Neutrophils % 73.2 %
[2017-09-09 06:02] LABS: BUN/Creatinine Ratio 16 (6-26); Blood Urea Nitrogen 11 mg/dL (7-20); Calcium 8.6 mg/dL (8.6-10.8); Carbon Dioxide 21 mEq/L (19-29); Chloride 97 mEq/L (98-109); Glucose 109 mg/dL (70-99); Magnesium 1.5 mg/dL (1.6-2.6); Osmolality,Calculated 268 (280-300); Sodium 129 mEq/L (136-145); eGFR For African Americans > 60 (> 60); eGFR For Non-African Americans > 60 (> 60)
[2017-09-09] MEDS: Ciprofloxacin OPTH Soln 2.5 ML BOTTLE LEFT EYE SCH ×4 (06:21→12:21)
[2017-09-09] MEDS: *HR* Enoxaparin 40 MG/0.4 ML SYRINGE SQ SCH (06:22)
[2017-09-09 07:03] VITALS: BP 121/64
[2017-09-09] MEDS: Sennosides/Docusate Sodium TABLET PO SCH (09:01)
[2017-09-09] MEDS: Anastrozole 1 MG TABLET PO SCH (09:01)
--- NOTE | 2017-09-09 10:52 | Discharge Summary ---
Date of Encounter: 09/09/17 Time of Encounter: 10:50 - Discharge Diagnosis (1) HCAP (healthcare-associated pneumonia) Priority: Primary Status: Acute (2) Hyponatremia Priority: Secondary Status: Chronic (3) Conjunctivitis, left eye Priority: Primary Status: Acute Qualifiers: Conjunctivitis type: acute Acute conjunctivitis type: unspecified Qualified Code(s): H10.32 - Unspecified acute conjunctivitis, left eye (4) Anxiety Priority: Secondary Status: Chronic (5) Breast cancer Priority: Secondary Status: Chronic Qualifiers: Breast location: unspecified site of breast Estrogen receptor status: positive Patient sex: female Laterality: right Qualified Code(s): C50.911 - Malignant neoplasm of unspecified site of right female breast; Z17.0 - Estrogen receptor positive status [ER+]; Z17.0 - Estrogen receptor positive status [ER+] (6) Hypothyroidism Priority: Secondary Status: Chronic Qualifiers: Hypothyroidism type: unspecified Qualified Code(s): E03.9 - Hypothyroidism , unspecified (7) GERD (gastroesophageal reflux disease) Priority: Secondary Status: Chronic Qualifiers: Esophagitis presence: esophagitis presence not specified Qualified Code(s) : K21.9 - Gastro-esophageal reflux disease without esophagitis (8) UTI (urinary tract infection) Priority: Primary Status: Acute Qualifiers: Urinary tract infection type: acute cystitis Hematuria presence: with hematuria Qualified Code(s): N30.01 - Acute cystitis with hematuria (9) Pleural effusion Priority: Secondary Status: Acute - Discharge Medications Prescriptions: Ciprofloxacin OPTH Soln [Ciloxan OPTH Soln] 2 drop LEFT EYE Q4HR #1 bottle GuaiFENesin ER [Mucinex] 600 mg PO BID #1 bottle Hydrocortisone Rectal CRM [Proctosol-Hc] 1 appl RC TID PRN #1 tube PRN Reason: Itching Levofloxacin [Levaquin] 750 mg PO DAILY #5 tablet Home Medications: Cyclobenzaprine [Flexeril] 5 mg PO HS PRN 06/17/16 [History] Multivitamin [Multi-Day Vitamins] 1 each PO DAILY 06/17/16 [History] Omeprazole [PriLOSEC] 20 mg PO DAILY 06/17/16 [History] Levothyroxine [Synthroid] 100 mcg PO 0630 07/19/17 [History] Acetaminophen [Tylenol] 650 mg PO Q6HR PRN tablet 07/20/17 [Rx] Anastrozole [Arimidex] 1 mg PO DAILY 09/06/17 [History] Ciprofloxacin OPTH Soln [Ciloxan OPTH Soln] 2 drop LEFT EYE Q4HR #1 bottle 09/09 [Rx] GuaiFENesin ER [Mucinex] 600 mg PO BID #1 bottle 09/09/17 [Rx] Hydrocortisone Rectal CRM [Proctosol-Hc] 1 appl RC TID PRN #1 tube 09/09/17 [Rx] Levofloxacin [Levaquin] 750 mg PO DAILY #5 tablet 09/09/17 [Rx] Allergies/Adverse Reactions: 3 Allergy/AdvReac Type Severity Reaction Status Date / Time Sulfa (Sulfonamide Allergy See Verified 09/06/17 17:30 Antibiotics) Comments morphine AdvReac Nausea Verified 09/06/17 17:30 Procedures/tests Complete & Pending: Procedures Performed prior 72 hours Category Date Time Status CT head/brain wo con [CT] Stat Cat Scan 09/07/17 13:21 Completed ECG 12 lead ECG [ECG] Routine Y 09/06/17 21:33 Completed Date of admission: 09/06/17 17:32 Primary care physician: Carissa Ramsey Consults: 09/08/17 10:54 Consult to Occupational Therapy [CONS] Routine Comment: Evaluate, develop and implement POC Reason for Consult: Weakness Consult to Physical Therapy [CONS] Routine Comment: Evaluate, develop and implement POC Reason for Consult: Weakness Discharging clinician: Iggy Nunez Anticipated date of discharge: 09/09/17 - Patient Status Disposition: Home, Self-Care Condition: Good Functional capacity at discharge: independent ambulation Overall status at discharge: patient is back to baseline - Discharge Instructions Follow Up With: Isai Soliz DO [Primary Care Provider] - 09/12/17 10:00 am () - Diet and Activity Activity: resume usual activities as tolerated Diet: advance to your usual diet Interval History: See below Hospital course: Ms. Dallas is a 86 year old female with PMH of HTN, Breast CA s/p recent mastectomy she was admitted for management of E.Coli UTI and HCAP, as well as mild Pleural effusion Pnuemonia is possibly streptococcal, no cultures done or positive. Patient has no sputum culture done She is looking improved and does not have O2 requirement. Hospital stay complicated by a mechanical fall, no neurlogic sequelae She is ambulatory and clinically improving She is not producing sputum PTOT eval recorded no inervention Patient also had bacterial conjunctivitis and was on cipro eye drops prior to and during admission She is clinically stable to be discharged home on levaquin Vitals and labs are stable She has chronic hyponatremia, secondary to SIADH from [place], she is asymptomatic Follow up with PCP - Time Spent with Patient Total time spent providing and/or coordinating discharge services: Greater than 30 minutes (45 minute spent on face toface, documentation, patient education, medication reconciliation, prescriptions) - Constitutional Vitals: Temp Pulse Resp BP Pulse Ox 97.7 F 77 18 121/64 96 09/09/17 06:58 09/09/17 06:58 09/09/17 06:58 09/09/17 06:58 09/09/17 06:58 General appearance: Present: cooperative, A&O X 3, pleasant, no acute distress - Head Head exam: Present: atraumatic, normocephalic - Eye Eye exam: Present: PERRL, conjuntiva pink, sclera anicteric Pupils: Present: PERRL - Neck Neck exam general surgery: Present: supple, trachea midline. Absent: lymphadenopathy - Respiratory Respiratory exam: Present: CTAB. Absent: accessory muscle use, rales, rhonchi, wheezes - Cardiovascular Cardiovascular exam: Present: RRR, +S1, +S2. Absent: diastolic murmur, gallop, rubs, systolic murmur - GI/Abdominal GI/Abdominal exam: Present: normal bowel sounds, soft, no peritoneal signs. Absent: distended, tenderness - Extremities Exam Extremities exam: Present: warm, radial pulses palpable and symmetrical. Absent : calf tenderness, cyanotic, pedal edema - Neurological Exam Neurological exam: Present: alert, CN II-XII intact, oriented X3, no focal deficits. Absent: pronater drift, facial droop, speech deficit - Skin Skin exam: Present: dry, intact
[2017-09-09] MEDS ORDERED: Magnesium Oxide 400 MG TABLET PO ONE (12:33)
--- NOTE | 2017-09-09 12:40 | Physician Discharge Referral ---
Home Health/Hosp Referral Info Transfer to: Home Health Provider in Charge Post Discharge: PCP - Diagnosis (1) HCAP (healthcare-associated pneumonia) Priority: Primary Status: Acute (2) Hyponatremia Priority: Secondary Status: Chronic (3) Conjunctivitis, left eye Priority: Primary Status: Acute (4) Anxiety Priority: Secondary Status: Chronic (5) Breast cancer Priority: Secondary Status: Chronic (6) Hypothyroidism Priority: Secondary Status: Chronic (7) GERD (gastroesophageal reflux disease) Priority: Secondary Status: Chronic (8) UTI (urinary tract infection) Priority: Primary Status: Acute (9) Pleural effusion Priority: Primary Status: Acute - Respiratory Orders Smoking Cessation: Smoking cessation has been advised. For more information, call the [employer] Quit Line at 9-772-NMSI-NOW. - Diet/Nutrition Diet/Nutrition Orders: Cardiac - Activity Activity Orders: Up ad starr - Services Needed Following services are medically necessary services: Home Health Aide - Transfer Medications Prescriptions: Ciprofloxacin OPTH Soln [Ciloxan OPTH Soln] 2 drop LEFT EYE Q4HR #1 bottle GuaiFENesin ER [Mucinex] 600 mg PO BID #1 bottle Hydrocortisone Rectal CRM [Proctosol-Hc] 1 appl RC TID PRN #1 tube PRN Reason: Itching Levofloxacin [Levaquin] 750 mg PO DAILY #5 tablet Home Medications: Cyclobenzaprine [Flexeril] 5 mg PO HS PRN 06/17/16 [History] Multivitamin [Multi-Day Vitamins] 1 each PO DAILY 06/17/16 [History] Omeprazole [PriLOSEC] 20 mg PO DAILY 06/17/16 [History] Levothyroxine [Synthroid] 100 mcg PO 0630 07/19/17 [History] Acetaminophen [Tylenol] 650 mg PO Q6HR PRN tablet 07/20/17 [Rx] Anastrozole [Arimidex] 1 mg PO DAILY 09/06/17 [History] Ciprofloxacin OPTH Soln [Ciloxan OPTH Soln] 2 drop LEFT EYE Q4HR #1 bottle 09/09 [Rx] GuaiFENesin ER [Mucinex] 600 mg PO BID #1 bottle 09/09/17 [Rx] Hydrocortisone Rectal CRM [Proctosol-Hc] 1 appl RC TID PRN #1 tube 09/09/17 [Rx] Levofloxacin [Levaquin] 750 mg PO DAILY #5 tablet 09/09/17 [Rx] Allergies/Adverse Reactions: 3 Allergy/AdvReac Type Severity Reaction Status Date / Time Sulfa (Sulfonamide Allergy See Verified 09/06/17 17:30 Antibiotics) Comments morphine AdvReac Nausea Verified 09/06/17 17:30 Certification: Further, I certify that my clinical findings support that this patient is homebound (i.e. absences from home require considerable and taxing effort and are for medical reasons or jewish services or infrequently or short duration when for other reasons) because: Homebound Reason: Patient requires assistance of a person or device to safely leave home Attestation: My signature below is to certify that this patient is under my care and that I, or nurse practitioner, or a physician's insurance claims assistant working with me, has a face-to -face encounter with this patient.
[2017-09-10 11:42] LABS: Total Volume 24 Hour,Urine 2.68 Liters (0.60-1.60)
[2017-09-10 12:23] LABS: Creatinine 24 Hour,Urine 0.59 g/day (0.71-1.65)
== END 2017-09-09 13:50 | disposition home or self-care (01) ==
LOC: EMEROO 14:25 → 2ANU 14:25
PROVIDERS: ADMIT Internal Medicine; ATTEND Internal Medicine